=== PATIENT | female | born 1955 | race African-American/Black ===

== ENCOUNTER 2017-02-02 13:05 | Outpatient (CLI) | payer OTHER ==
[~2017-02-02 13:05] MED LIST: GLUCOPHAGE500 MG PO; HYZAAR 50-12.51 EACH PO; OS-CAL 500+D C1 EAC1 PO; PLAVIX75 MG PO; SIMVASTATIN40 MG PO; TENORMIN25 MG PO
[2017-02-02 13:33] VITALS: BP 108/80
[2017-02-02] MEDS ORDERED: CALCIUM600 M1 PO (13:40)
--- NOTE | 2017-02-02 14:07 | GI Progress Note ---
Assessment/Plan Problems: (1) Colonoscopy planned SNOMED: 876900823 (2) Ulcerative colitis ICD Codes: K51.90 - Ulcerative colitis SNOMED: 21150744 Status: stable Status Narrative Seen with Dr. Neville. Assessment/Plan colonoscopy scheduled 02/02/17 given history of UC pending prior auth. - CLD & prep instructions acknowledged by patient. patient on Plavix, must be dc min 48 hours prior procedure. Subjective Subjective no GI symptoms at this time Objective Last 24 Hour Vital Signs Date Time Temp Pulse Resp B/P (MAP) Pulse Ox O2 Delivery O2 Flow Rate FiO2 02/02/17 13:33 98.1 80 16 108/80 General Appearance: no apparent distress, alert Cardiovascular: normal rate Respiratory/Chest: normal breath sounds, no respiratory distress Abdominal Exam: normal bowel sounds, non tender, soft Extremities: normal range of motion Arti Marie N.P. Feb 02, 2017 14:07
== END 2017-02-02 13:45 | disposition home or self-care (01) ==
LOC: PAN 13:05
DX: K51.90 Ulcerative colitis, unspecified, without complications (principal)
CPT/HCPCS: 99211

== ENCOUNTER 2017-03-14 07:11 | Day surgery (SDC) | payer OTHER ==
[2017-03-14] VITALS (9 sets, daily range): BP systolic 97–126; BP diastolic 52–77
[~2017-03-14] VITALS: Ht 160 cm; Wt 75.3 kg
--- NOTE | 2017-03-14 06:39 | Anethesia Preoperative Eval ---
Anesthesia Pre-op PMH/ROS General Date of Evaluation: Mar 14, 2017 Time of Evaluation: 06:37 Anesthesiologist: malorie ASA Score: ASA 3 Mallampati Score Class I : Soft palate, uvula, fauces, pillars visible Class II: Soft palate, uvula, fauces visible Class III: Soft palate, base of uvula visible Class IV: Only hard plate visible Mallampati Classification: Class II Surgeon: marleen Diagnosis: colitis Surgical Procedure: colonoscopy Anesthesia History: none Social History: smoking - former smoker Family History: no anesthesia problems Allergies: Coded Allergies: FISH DERIVED (Verified Allergy, 05/22/12) ITCHING PEANUT (Verified Allergy, Anaphylaxis, 05/22/12) Medications: see eMAR Past Medical History Cardiovascular: Reports: HTN Neurologic/Psychiatric: Reports: CVA, TIA Endocrine: Reports: DM Anesthesia Pre-op Phys. Exam Physician Exam Constitutional: NAD Neurologic: CN 2-12 intact Cardiovascular: RRR Respiratory: CTA Gastrointestinal: S/NT/ND Airway Exam Mallampati Score: Class II MO: full Neck: supple TMD: 2fb ROM: full Teeth: intact Anesthesia Pre-op A/P Studies Pre-op Studies: EKG - nsstwa, nsr Risk Assessment & Plan Assessment: asa3 Plan: mac Status Change Before Surgery: No Pre-Antibiotics Drug: CHARLOTTE Azar Mar 14, 2017 06:39
[~2017-03-14 07:11] MED LIST changes: +CALCIUM600 M1 PO
[2017-03-14] MEDS ORDERED: Lidocaine 1% MPF 10mg/ml 5ml ONE (09:30)
[2017-03-14] MEDS ORDERED: Propofol 200mg/20ml IV ONE (09:30)
--- NOTE | 2017-03-14 09:30 | Pre-Procedure Note/Attestation ---
Pre-Procedure Note/Attestation Complete Prior to Procedure Planned Procedure: not applicable Procedure Narrative: colonoscopy Indications for Procedure Pre-Operative Diagnosis: uc Attestation I attest that I discussed the nature of the procedure; its benefits; risks and complications; and alternatives (and the risks and benefits of such alternatives ), prior to the procedure, with the patient (or the patient's legal sales representative printing paper). I attest that, if there was a reasonable possibility of needing a blood transfusion, the patient (or the patient's legal sales representative printing paper) was given the [facility] standardized written summary, pursuant to the [place] Blood Safety Act ([place] Health and Safety Code # 1645, as amended). I attest that I re-evaluated the patient just prior to the surgery and that there has been no change in the patient's H&P, except as documented below: JORGE YO Mar 14, 2017 09:30
--- NOTE | 2017-03-14 09:31 | Short Stay Surgery H&P ---
History of Present Illness History of Present Illness Chief Complaint uc HPI Janel Wilburn is a 61 year old female who was admitted on for Colitis Patient History Allergies: Coded Allergies: FISH DERIVED (Verified Allergy, 05/22/12) ITCHING PEANUT (Verified Allergy, Anaphylaxis, 05/22/12) PAST MEDICAL HISTORY: (1) Ulcerative colitis (2) Colonoscopy planned Past Surgeries: Social History: Medication History Scheduled Atenolol (Tenormin), 50 MG PO DAILY, (Reported) Calcium Carbonate (Calcium), 600 MG PO DAILY, (Reported) Clopidogrel Bisulfate* (Plavix*), 75 MG PO DAILY, (Reported) Losartan/Hydrochlorothiazide 50-12.5 Tablet* (Hyzaar 50-12.5 Tablet*), 1 EACH PO DAILY, (Reported) Metformin Hcl* (Glucophage*), 500 MG PO TID, (Reported) Simvastatin (Zocor), 40 MG PO QHS, (Reported) Review of Systems Cardiovascular: Reports: no symptoms Respiratory: Reports: no symptoms Skeletal: Reports: no symptoms Gastrointestinal: Reports: no symptoms Genitourinary: Reports: no symptoms Neurologic: Reports: no symptoms Endocrine: Reports: no symptoms Hematologic: Reports: no symptoms Physical Exam Vital Signs Last Vital Signs Date Time Temp Pulse Resp B/P (MAP) Pulse Ox O2 Delivery O2 Flow Rate FiO2 03/14/17 07:47 97.7 63 20 124/65 100 Room Air Skin: normal HENT: normal Heart: normal Lungs: normal Abdomen: normal Extremities: normal Plan Plan of Care colonoscopy Final Diagnosis: Attestation Are the patient's medical conditions optimized for surgery? Attestation Response: yes JORGE YO Mar 14, 2017 09:31
--- NOTE | 2017-03-14 09:50 | Endoscopy Procedure Note ---
Endoscopy Procedure Note Indication for Procedure: uc Procedures Performed: colonoscopy Operative Findings/Diagnosis: same Specimen: yes Pt Tolerated Procedure Well: Yes Estimated Blood Loss: none Anesthesiologist: adwoa Anesthesia: MAC Implant(s) used?: No 50 yrs or older w/o bx or poly: No 10yrs. F/U not recommended: Yes If not recommended, why?: Above average risk 10 yrs. F/U needed: Yes 18 years or older w/prev. colo: Yes <3yrs. since last colonoscopy: No JORGE YO Mar 14, 2017 09:50
[2017-03-14] MEDS ORDERED: Atropine Inj 1mg/10ml Syr IV PRN (10:00)
[2017-03-14] MEDS ORDERED: fentaNYL 100 mcg/2 mL IV PRN (10:00)
[2017-03-14] MEDS ORDERED: Midazolam 2mg/2ml Inj IVP PRN (10:00)
[2017-03-14] MEDS ORDERED: DiphenhydrAMINE 50mg/ml Inj IVP PRN (10:00)
--- NOTE | 2017-03-14 10:11 | Immediate Post-Op Evaluation ---
Immediate Post-Op Evalulation Immediate Post-Op Evalulation Procedure: colonoscopy Date of Evaluation: Mar 14, 2017 Time of Evaluation: 10:09 IV Fluids: d5w 125ml: 0.9ns 250ml Blood Products: none Estimated Blood Loss: negligible Blood Pressure Systolic: 97 Blood Pressure Diastolic: 65 Pulse Rate: 64 Respiratory Rate: 18 O2 Sat by Pulse Oximetry: 99 Temperature (Fahrenheit): 98.3 Pain Score (1-10): 0 Nausea: No Vomiting: No Complications none Patient Status: awake, reacts, patent Hydration Status: adequate Drug: CHARLOTTE Azar Mar 14, 2017 10:11
--- NOTE | 2017-03-14 10:12 | 48 Hour Post Anesthesia Eval ---
Post Anesthesia Evaluation Procedure: colonoscopy Date of Evaluation: Mar 14, 2017 Time of Evaluation: 10:11 Blood Pressure Systolic: 100 0: 65 Pulse Rate: 62 Respiratory Rate: 18 Temperature (Fahrenheit): 98.3 O2 Sat by Pulse Oximetry: 100 Airway: patent Nausea: No Vomiting: No Pain Intensity: 0 Hydration Status: adequate Cardiopulmonary Status: stable Mental Status/LOC: patient returned to baseline Post-Anesthesia Complications: none Follow-up care needed: N/A CHARLOTTE VIDALES Mar 14, 2017 10:12
--- NOTE | 2017-03-14 15:30 | Procedure Note ---
DATE OF PROCEDURE: 03/14/2017 SURGEON: Manuel Neville M.D. PROCEDURE: Colonoscopy with biopsy. ANESTHESIOLOGIST: Maryan Graham M.D. INSTRUMENT: Olympus adult flexible colonoscope. INDICATION: History of ulcerative colitis. REASON FOR PROCEDURE: The procedure, risks, benefits, and possible consequences, including hemorrhage, aspiration, perforation and infection, and alternative treatments, were explained to the patient/legal guardian by Dr. Manuel Neville and the patient/legal guardian understood and accepted these risks. DESCRIPTION OF PROCEDURE: After informed consent was obtained and the patient was adequately sedated, first rectal exam was performed, which was normal. Then, the scope was advanced from the rectum into the cecum. Quality of prep was overall poor. There was a lot of fluid throughout the colon, thick greenish fluid. I would say 30% of the colonic mucosa was covered with thick fluid and we washed out as best as we could but in those examination was limited. The colonic exam grossly looked within normal limits except for mild inflammation in the rectum. Biopsy from the ascending colon, transverse colon, and rectum was obtained randomly. Retroflexion of rectum showed evidence of few nonbleeding internal hemorrhoids. SUMMARY OF FINDINGS: 1. Poor colonic prep see above for details. 2. One status post biopsy of the transverse colon, ascending colon, and rectum. 3. Internal hemorrhoids. RECOMMENDATIONS: Follow up biopsy results and treat . Manuel Neville M.D. DR: Devin JOB#: [id number] CC:
--- NOTE | 2017-03-15 15:44 | Cardiology Report ---
APPROVED REPORT EKG Measurement Heart [id number] ND 180P50 [id number] Normal sinus rhythm Nonspecific T wave abnormality Abnormal ECG
== END 2017-03-14 11:25 | disposition home or self-care (01) ==
LOC: GAS 07:11
DX: K52.9 Noninfective gastroenteritis and colitis, unspecified (principal); K64.8 Other hemorrhoids; I10 Essential (primary) hypertension; E11.9 Type 2 diabetes mellitus without complications; Z86.73 Personal history of transient ischemic attack (TIA), and cerebral infarction without residual deficits; Z91.010 Allergy to peanuts; Z91.013 Allergy to seafood; Z79.84 Long term (current) use of oral hypoglycemic drugs
CPT/HCPCS: 45380; 82962; 93005; J2704; J7070; 94003; 94150